=== PATIENT | female | born 1975 | race Caucasian/White ===

== ENCOUNTER 2018-03-23 18:28 | Emergency (ER) | payer MEDICAID ==
[~2018-03-23] VITALS: Ht 167.6 cm; Wt 137.9 kg
[2018-03-23 18:32] VITALS: BP 155/109
[2018-03-23] MEDS ORDERED: HYDROcodone/APAP 5/325 TABLET PO STA (19:14)
[2018-03-23] MEDS ORDERED: HYDROcodone/APAP 5/325 TABLET ONE (19:25)
== END 2018-03-23 20:00 | disposition home or self-care (01) ==
LOC: ED 19:40
DX: S29.011A Strain of muscle and tendon of front wall of thorax, initial encounter (principal); W01.0XXA Fall on same level from slipping, tripping and stumbling without subsequent striking against object, initial encounter; Y93.89 Activity, other specified; Y92.410 Unspecified street and highway as the place of occurrence of the external cause; Y99.8 Other external cause status
CPT/HCPCS: 99283